=== PATIENT | male | born 1975 | race Caucasian/White ===

== ENCOUNTER 2021-11-20 07:13 | Day surgery (SDC) | payer MEDICAID ==
[2021-11-15 15:32] LABS: CLARITY,URINE CLEAR (Clear); COLOR,URINE YELLOW (Yellow); GLUCOSE, URINE NEGATIVE (Neg); KETONES,URINE NEGATIVE (Neg); LEUKOCYTE ESTERASE ,URINE NEGATIVE (Neg); NITRITES, URINE NEGATIVE (Neg); OCCULT BLOOD,URINE NEGATIVE (Neg); PH,URINE 5.5 (4.8-8.0); PROTEIN,URINE NEGATIVE (Neg); UROBILINOGEN,URINE 0.2 E.U/dL (0.2-1.0)
[2021-11-15 15:33] LABS: BASOPHILS % (AUTO) 0.7 % (0-1); EOSINOPHILS # (AUTO) 0.2 X10'3 (0-0.9); EOSINOPHILS % (AUTO) 3.5 % (0-6); LYMPHOCYTES # (AUTO) 2.6 X10'3 (1.1-4.8); MEAN CORPUSCULAR HEMOGLOBIN 32.4 PG (27.0-31.0); MEAN CORPUSCULAR HGB CONC 33.8 g/dL (33.0-36.5); MEAN CORPUSCULAR VOLUME 95.8 FL (78-98); MONOCYTES # (AUTO) 0.8 X10'3 (0-0.9); MONOCYTES % (AUTO) 12.9 % (2-12); NEUTROPHILS # (AUTO) 2.4 X10'3 (1.8-7.7); NEUTROPHILS % (AUTO) 39.9 % (42-75); PRE OP HEMATOCRIT 42.8 % (42.0-52.0); PRE OP HEMOGLOBIN 14.5 g/dL (14.0-17.9); PRE OP PLATELET COUNT 188 X10'3 (140-440); RED BLOOD COUNT 4.47 X10'6 (4.70-6.10); RED CELL DISTRIBUTION WIDTH 13.2 % (11.5-14.5)
[2021-11-15 15:40] LABS: UA COLLECTION TYPE CLN CATCH MIDSTREAM
[2021-11-15 15:48] LABS: ALBUMIN 3.9 G/DL (3.4-5.0); ALBUMIN/GLOBULIN RATIO 0.9 (1.1-1.5); ALKALINE PHOSPHATASE 77 IU/L (46-116); BLOOD UREA NITROGEN 13 MG/DL (7-18); CHLORIDE 105 MMOL/L (99-107); PRE OP ANION GAP 11 (8-16); PRE OP BILIRUB, TOTAL 0.7 MG/DL (0.0-1.0); PRE OP GLUCOSE 80 MG/DL (70-104); PRE OP POTASSIUM 3.6 MMOL/L (3.4-5.1); PRE OP SODIUM 143 MMOL/L (135-145); TOTAL CARBON DIOXIDE 27.2 MMOL/L (24-32); TOTAL PROTEIN 8.3 G/DL (6.4-8.2); eGFR 80 ML/MIN
[2021-11-15 15:50] LABS: PRE OP ALT 193 U/L (30-65); PRE OP AST 137 U/L (10-37)
[~2021-11-20] VITALS: Ht 185.4 cm; Wt 99.8 kg
[2021-11-20] VITALS (12 sets, daily range): BP systolic 102–128; BP diastolic 57–94
[~2021-11-20 07:13] MED LIST: ALBU8HFA PO; cefazolin/dext.iso 2gm/50ml IV ONE; famotidine 20mg tablet PO ONE; ringers solution, lacted 1,000 ML IV SCH
[2021-11-20] MEDS ORDERED: ipratropium/albuterol 3ml nebule ONE (08:47)
[2021-11-20 09:11] LABS: ALBUMIN 3.3 G/DL (3.4-5.0); ALBUMIN/GLOBULIN RATIO 0.8 (1.1-1.5); ALKALINE PHOSPHATASE 64 IU/L (46-116); BLOOD UREA NITROGEN 8 MG/DL (7-18); BUN/CREATININE RATIO 8.8 (5.4-32.0); CHLORIDE 109 MMOL/L (99-107); CREATININE 0.91 MG/DL (0.60-1.10); PRE OP ANION GAP 11 (8-16); PRE OP BILIRUB, TOTAL 0.4 MG/DL (0.0-1.0); PRE OP GLUCOSE 90 MG/DL (70-104); PRE OP SODIUM 144 MMOL/L (135-145); TOTAL CARBON DIOXIDE 23.6 MMOL/L (24-32); TOTAL PROTEIN 7.3 G/DL (6.4-8.2); eGFR 89 ML/MIN
[2021-11-20 09:14] LABS: PRE OP AST 82 U/L (10-37); PRE OP POTASSIUM 4.1 MMOL/L (3.4-5.1)
[2021-11-20 09:29] LABS: PRE OP ALT 128 U/L (30-65)
[2021-11-20] MEDS ORDERED: ringers solution, lacted 1,000 ML IV SCH (09:40)
[2021-11-20] MEDS ORDERED: ondansetron/PF 4mg/2ml inj IV PRN (09:40)
[2021-11-20] MEDS ORDERED: meperidine/PF 25mg/ml syringe IV PRN ×3 (09:40)
[2021-11-20] MEDS ORDERED: morphine 2 MG/ML inj. syringe IV PRN (09:40)
[2021-11-20] MEDS ORDERED: proCHLORperazine 10 MG/2 ml inj IV PRN (09:40)
[2021-11-20] MEDS ORDERED: morphine 4 MG/ML inj SYRINge IV PRN (09:40)
[2021-11-20] MEDS ORDERED: BUPIVAcaine 0.5% inj/PF 30 ML ONE (10:06)
[2021-11-20] MEDS ORDERED: midazolam 1 mg/ML 2ml injection ONE (10:15)
[2021-11-20] MEDS ORDERED: fentaNYL /PF 50mcg/ml 5ml ampule ONE (10:15)
[2021-11-20] MEDS ORDERED: propofol inj 20 ML IV ONE (10:16)
[2021-11-20] MEDS ORDERED: ondansetron/PF 4mg/2ml inj ONE (10:16)
[2021-11-20] MEDS ORDERED: dexamethasone sod phosphate 4mg/ml inj. ONE (10:16)
[2021-11-20] MEDS ORDERED: LIDOcaine 2% (20mg/ml) 5ml vial ONE (10:16)
[2021-11-20 10:19] LABS: PRE OP PARTIAL THROMB. TIME 25 SECONDS (22-32)
[2021-11-20] MEDS ORDERED: NS SQ ONE (10:25)
[2021-11-20] MEDS ORDERED: EPI SQ ONE (10:25)
[2021-11-20] MEDS ORDERED: LIDOCAINE 1% SQ ONE (10:25)
--- NOTE | 2021-11-20 10:27 | NUR ---
BARBIE OVERRODE. RT WAS UNABLE TO RETRIEVE MEDICATION DUE TO ORDER ERROR. BARBIE WAS OVERRODE BY RT TO ADMINISTER TREATMENT. Addendum: 11/20/21 at 1029 by Sharlene Khan RT Amended: Links added.
[2021-11-20] MEDS ORDERED: sevoflurane 250ml liquid IH ONE (10:36)
[2021-11-20] MEDS ORDERED: ipratropium/albuterol 3ml nebule NEB SCH (11:00)
[2021-11-20] MEDS ORDERED: glycopyrrolate 0.2mg/ml inj ONE (11:15)
--- NOTE | 2021-11-20 11:23 | NUR ---
Received from OR via [facility], accompanied by Anesthesiologist DR VALENCIA and report given by Anesthesiolgist. PT PRESENTS WITH PIV 20G RIGHT HAND, RIGHT LEG DRESSING CLEAN DRY AND INTACT, VSS. Addendum: 11/20/21 at 1136 by Yulissa Jang RN, RN Amended: Links added.
[2021-11-20] MEDS ORDERED: HYDROcodone/acetaminophen 10/325mg tab PO ONE (12:25)
--- NOTE | 2021-11-20 13:13 | NUR ---
PATIENT DISCHARGED FROM PACU IN STABLE CONDITION AFTER WRITTEN AND VERBAL DISCHARGE INSTRUCTIONS GIVEN. PATIENT GAVE VERBAL UNDERSTANDING OF INSTRUCTIONS GIVEN. PATIENT LEFT FACILITY VIA WHEELCHAIR WITH RN. Addendum: 11/20/21 at 1324 by Yulissa Jang RN RN Amended: Links added.
== END 2021-11-20 13:13 | disposition home or self-care (01) ==
LOC: PAS 07:13
PROVIDERS: ATTEND Surgery
DX: I83.811 Varicose veins of right lower extremity with pain (principal); I83.891 Varicose veins of right lower extremity with other complications; J45.909 Unspecified asthma, uncomplicated; F17.210 Nicotine dependence, cigarettes, uncomplicated; Z86.19 Personal history of other infectious and parasitic diseases; Z72.89 Other problems related to lifestyle; Z86.718 Personal history of other venous thrombosis and embolism; Z79.899 Other long term (current) drug therapy; Z20.822 Contact with and (suspected) exposure to COVID-19; Z79.01 Long term (current) use of anticoagulants
CPT/HCPCS: 36415; 37799; 71045; 80053; 81003; 82948; 85025; 85610; 85730; 93005; 94640; 94760; J1100; J2175; J2250; J2405; J2704; J3010; J3490; J7030; J7120; S0020; U0003; U0005; Z7506; Z7512; A4618; A6449; A7000; J0690